=== PATIENT | male | born 1955 | race Caucasian/White ===

== ENCOUNTER 2019-04-03 13:20 | Outpatient (CLI) | payer OTHER ==
[~2019-04-03] VITALS: Ht 172 cm; Wt 89.4 kg
[2019-04-03 14:06] LABS: BASOPHILS % (AUTO) 1 % (0-10); EOSINOPHILS # (AUTO) 0.3 10^3/uL (0.0-0.3); EOSINOPHILS % (AUTO) 4 % (0-10); HEMATOCRIT 43 % (40-54); HEMOGLOBIN 14.1 G/DL (13.3-17.7); LYMPHOCYTES # (AUTO) 1.5 X 10^3 (1.0-4.0); LYMPHOCYTES % (AUTO) 17 % (12-44); MEAN CORPUSCULAR HEMOGLOBIN 28 PG (25-34); MEAN CORPUSCULAR HGB CONC 33 G/DL (32-36); MEAN CORPUSCULAR VOLUME 84 FL (80-99); MEAN PLATELET VOLUME 10.1 FL (7.4-10.4); MONOCYTES # (AUTO) 1.3 X 10^3 (0.0-1.0); MONOCYTES % (AUTO) 14 % (0-12); NEUTROPHILS # (AUTO) 5.7 X 10^3 (1.8-7.8); NEUTROPHILS % (AUTO) 65 % (42-75); PLATELET COUNT 323 10^3/uL (130-400); RED CELL DISTRIBUTION WIDTH 15.7 % (10.0-14.5); WHITE BLOOD COUNT 8.9 10^3/uL (4.3-11.0)
--- NOTE | 2019-04-03 14:16 | Diagnostic Imaging Report ---
EXAMINATION: Chest 2 view HISTORY: PRE-OP COMPARISON: None available. FINDINGS: The lung volumes are normal. No focal consolidation is seen. No large pleural effusion or pneumothorax is seen. The cardiomediastinal silhouette is normal in size and contour. No acute osseous abnormality is seen. IMPRESSION: 1. No acute pleuroparenchymal process. Dictated by: Dictated on workstation # [id number]
[2019-04-03 14:24] LABS: BUN/CREATININE RATIO 14; CALCIUM 9.2 MG/DL (8.5-10.1); CARBON DIOXIDE 24 MMOL/L (21-32); CHLORIDE 107 MMOL/L (98-107); CREATININE SERUM 1.09 MG/DL (0.60-1.30); GFR ESTIMATED > 60; GLUCOSE 132 MG/DL (70-105); POTASSIUM 4.8 MMOL/L (3.6-5.0); SODIUM 141 MMOL/L (135-145)
[2019-04-09] MEDS ORDERED: CRAN1CAP5 PO (09:13)
[2019-04-09] MEDS ORDERED: TEST200V21 IM (09:13)
[2019-04-09] MEDS ORDERED: SAW/1TAB2 PO (09:13)
[2019-04-09] MEDS ORDERED: ESOM20CA37 PO (09:13)
[2019-04-09] MEDS ORDERED: CITA20TA12 PO (09:13)
[2019-04-09] MEDS ORDERED: DIAZ2TAB2 PO (09:13)
[2019-04-09] MEDS ORDERED: AMLO10TA7 PO (09:13)
[2019-04-09] MEDS ORDERED: MULT-178 PO (09:13)
[2019-04-09] MEDS ORDERED: METF-397 PO (09:13)
[2019-04-09] MEDS ORDERED: TMSL.4C PO (09:13)
[2019-04-09] MEDS ORDERED: LISI-552 PO (09:13)
[2019-04-09] MEDS ORDERED: SIMV20TA26 PO (09:13)
[2019-04-09] MEDS ORDERED: SILO8CAP2 PO (09:13)
[2019-04-09] MEDS ORDERED: CYAN250010 PO (09:13)
[2019-04-09] MEDS ORDERED: ROPI1TAB PO (09:13)
[2019-04-09] MEDS ORDERED: OMG1KC PO (09:13)
[2019-04-09] MEDS ORDERED: LEVO175T5 PO (09:13)
[2019-04-09] MEDS ORDERED: ASPI-586 PO (09:13)
== END 2019-04-03 15:30 ==
LOC: PREOP 13:20 → EDUNIT# 14:00 → PREOP 15:30
PROVIDERS: ATTEND Otolaryngology Otolaryngology/Facial Plastic Surgery
DX: Z01.818 Encounter for other preprocedural examination (principal); Z01.812 Encounter for preprocedural laboratory examination; J34.2 Deviated nasal septum; J32.9 Chronic sinusitis, unspecified
CPT/HCPCS: 36415; 71046; 80048; 85025; 87081; 93005

== ENCOUNTER 2019-04-12 08:00 | Day surgery (SDC) | payer OTHER ==
[~2019-04-12] VITALS: Ht 163.2 cm; Wt 89.4 kg
[2019-04-12] VITALS (9 sets, daily range): BP systolic 125–142; BP diastolic 73–96
[~2019-04-12 08:00] MED LIST: AMLO10TA7 PO; ASPI-586 PO; CITA20TA12 PO; CRAN1CAP5 PO; CYAN250010 PO; DIAZ2TAB2 PO; ESOM20CA37 PO; LEVO175T5 PO; LISI-552 PO; METF-397 PO; MULT-178 PO; OMG1KC PO; ROPI1TAB PO; SAW/1TAB2 PO; SILO8CAP2 PO; SIMV20TA26 PO; TEST200V21 IM; TMSL.4C PO
[2019-04-12] MEDS ORDERED: SEVOFLURANE (ULTANE) 15 ML INHAL SOLN ONE ×3 (08:37→11:02)
[2019-04-12] MEDS ORDERED: ONDANSETRON 4 MG/2 ML (SDV) Z0FRAN ONE (08:37)
[2019-04-12] MEDS ORDERED: proPOfol 200 MG/20 ML (DIPRIVAN) VIAL IV ONE (08:37)
[2019-04-12] MEDS ORDERED: MIDAZOLAM 2 MG/2 ML (VERSED) VIAL ONE (08:37)
[2019-04-12] MEDS ORDERED: LIDOCAINE PF 2% 5 ML (XYLOCAINE) VIAL ONE (08:37)
[2019-04-12] MEDS ORDERED: fentaNYL INJECTION 100 MCG/2 ML AMP ONE (08:37)
[2019-04-12] MEDS ORDERED: AMPICILLIN/SULBACTAM INJECTION 1.5 GM in NS (IVPB) 100 ML IV ONE (09:00)
[2019-04-12] MEDS: LACTATED RINGERS 1,000 ML IV PRN ×2 (09:00→11:09)
[2019-04-12] MEDS ORDERED: CATHETER FLUSH 10 ML SYR IV PRN (09:00)
[2019-04-12] MEDS ORDERED: PHENYLEPHRINE 0.5% NASAL SPR (NEO-SYNEPHRINE) REG ONE (09:02)
[2019-04-12] MEDS ORDERED: COCAINE HCL 4% 2 ML SYR ONE (09:02)
[2019-04-12] MEDS ORDERED: BSS 15 ML ONE (09:02)
[2019-04-12] MEDS ORDERED: LIDOCAINE/EPI 1%-1:100,000 (XYLOCAINE) 20ML ONE (09:03)
--- NOTE | 2019-04-12 10:00 | Progress Note-Pre Operative ---
Pre-Operative Progress Note H&P Reviewed The H&P was reviewed, patient examined and no changes noted. Date Seen by Provider: Apr 12, 2019 Time Seen by Provider: 09:45 Date H&P Reviewed: Apr 12, 2019 Time H&P Reviewed: :45 Pre-Operative Diagnosis: Right Chronic Sinusitis, Deviated nasal Septum HAZEL DENSON MD Apr 12, 2019 10:00
[2019-04-12] MEDS ORDERED: PHENYLEPHRINE 100 MCG/ML 10 ML (ANESTHESIA) SYR ONE (10:44)
[2019-04-12] MEDS ORDERED: ROCURONIUM 10 MG/ML 5 ML SYRINGE IV ONE (11:02)
[2019-04-12] MEDS ORDERED: D5 1/2 NS W/KCL 20 MEQ/L 1,000 ML IV SCH (11:28)
--- NOTE | 2019-04-12 11:28 | Progress Note-Post Operative ---
Post-Operative Progess Note Surgeon (s)/Labor Operator (s) Surgeon HAZEL DENSON MD Labor Operator n/a Pre-Operative Diagnosis Right Chronic Sinusitis, Deviated nasal Septum Post-Operative Diagnosis same Post-Op Procedure Note Date of Procedure: Apr 12, 2019 Name of Procedure Performed: Nasal Septoplasty, Right ESs Description & Findings Description and Findings: n/a Anesthesia Type get Estimated Blood Loss minimal Packing none. Specimen(s) collected/removed Right Chronic Sinustis-aerobic anaerobic and fungal cultures sent to lab HAZEL DENSON MD Apr 12, 2019 11:28
[2019-04-12] MEDS ORDERED: PROMETHAZINE INJ 25 MG/ML (PHENERGAN) AMP IVP PRN (11:30)
[2019-04-12] MEDS ORDERED: ACETAMINOPHEN 325 MG TABLET PO PRN (11:30)
[2019-04-12] MEDS ORDERED: HYDROcodone/APAP 5 MG/325 MG (LORTAB) TAB PO PRN (11:30)
--- NOTE | 2019-04-12 11:38 | Anesthesia-General Post-Op ---
General Patient Condition Mental Status/LOC: Same as Preop Cardiovascular: Satisfactory Nausea/Vomiting: Absent Respiratory: Satisfactory Pain: Controlled Complications: Absent Post Op Complications Complications None Follow Up Care/Instructions Patient Instructions None needed. Anesthesia/Patient Condition Patient Condition Patient is doing well, no complaints, stable vital signs, no apparent adverse anesthesia problems. No complications reported per nursing. VIRAJ SILVERMAN CRNA Apr 12, 2019 11:38
[2019-04-12] MEDS ORDERED: fentaNYL INJECTION 100 MCG/2 ML AMP IVP ONE (11:45)
[2019-04-12] MEDS ORDERED: morphine INJ 10 MG/ML 1ML (SYR OR VIAL) IVP ONE (11:45)
[2019-04-12] MEDS ORDERED: ONDANSETRON 4 MG/2 ML (SDV) Z0FRAN IVP PRN (11:45)
[2019-04-12] MEDS ORDERED: HYDROmorphone 2 MG/ML VIAL (DILAUDID) IV ONE (11:45)
[2019-04-12] MEDS ORDERED: MEPERIDINE (DEMEROL) INJ 50 MG/ML IVP ONE (11:45)
[2019-04-12] MEDS ORDERED: AMOX-355 PO (13:07)
[2019-04-12] MEDS ORDERED: HYDR-4226 PO (13:17)
--- OUTSIDE RECORDS SUMMARY | 2019-04-16 05:05 | XMS REPORT | Clinical Summary ---
Author Author Admin, Song Levy Organization [facility] Address Unknown Phone Unavailable Allergies, Adverse Reactions, Alerts Allergy Name Reaction Description Start Date Severity Status Pr ovider No Known Allergies Jyothi Elder Conditions or Problems Problem Name Problem Code Onset Date Status Entry Date Provider Comment Standard Description Annotate URETHRITIS 597.80 Active Linh Quiroga MD Urethritis, unspecified Prostatitis Chronic Active Linh becker MD Chronic prostatitis Hypogonadism 257.2 Active Linh Quiroga MD Other testicular hypofunction BMI 27-27.9 Active Linh Quiroga MD Body Mass Index 27.0- 27.9, adult Overweight (BMI 25-29.9) Active Linh romo MD Overweight Medication List Medication Instructions Start Date Stop Date Generic Name NDC Status Provider Patient Instruction CIPRO 500 MG ORAL TABLET 1 tablet twice a day CIPROFLOXACIN HCL 72834637600 No Longer Active Lihn Quiroga MD Active TESTOSTERONE CYPIONATE 200 MG/ML INTRAMUSCULAR SOLUTIO N 1 injection every 10 days TESTOSTERONE CYPIONATE 08647650729 Active Linh Quiroga MD Active FISH OIL 1000 MG ORAL CAPSULE DELAYED RELEASE 1 pill b y mouth twice daily for cholesterol OMEGA-3 FATTY ACIDS 44949491547 Active Jyothi Eld er Active FEXOFENADINE HCL 180 MG ORAL TABLET 1 Daily FEXOFENADINE HCL 39799750637 Active Jyothi Elder Active MULTIVITAMINS ORAL CAPSULE 1 cap by mouth daily MULTIPLE VITAMIN 64203273922 Active Jyothi Elder Active KETOCONAZOLE 2 % EXTERNAL SHAMPOO Rub into scalp and l eave for 10 minutes and then rinse. May use 3-4 times a week. KETOCONAZOLE 00 860994582 Active Jyothi Elder Active CYCLOBENZAPRINE HCL 10 MG ORAL TABLET 1 tablet by mout h three times daily as needed for muscle spasm/pain CYCLOBENZAPRINE HCL 07250 879066 Active Jyothi Elder Active [facility] MAGNESIUM OXIDE 500 MG ORAL TABLET 1 tab by mouth daily MAGNESIUM OXIDE 95337871907 Active Jyothi Elder Active DIAZEPAM 2 MG ORAL TABLET 1 twice a day as needed for vertig o or stress DIAZEPAM 87597581966 Active Jyothi Elder Activ e CALCIUM + D 500-1000-40 MG-UNT-MCG ORAL TABLET CHEWABLE 1 ta b by mouth daily CALCIUM-VITAMIN D-VITAMIN K 64543376913 Active Jyothi Eld er Active ADULT ASPIRIN EC LOW STRENGTH 81 MG ORAL TABLET DELAYE D RELEASE 1 tab by mouth daily ASPIRIN 51662349656 Active Jyothi Elder Activ e CIALIS 20 MG ORAL TABLET 1 tab by mouth daily prn ED TADALAFIL 28059806012 Active Jyothi Elder Active FAMOTIDINE 20 MG ORAL TABLET 1 tab by mouth daily FAMOTIDINE 01427694477 Active Jyothi Elder Active METFORMIN HCL 500 MG ORAL TABLET 1 tablet by mouth twice daily 2017 METFORMIN HCL 30939002752 Active Jyothi Elder Active ALTACE 5 MG ORAL CAPSULE 1 tab by mouth daily JERO IPRIL 31276533175 Active Jyothi Elder Active SIMVASTATIN 20 MG ORAL TABLET 1 tab daily at bedtime SIMVASTATIN 46493564720 Active Jyothi Elder Active METRONIDAZOLE 500 MG ORAL TABLET 1 by mouth twice a day METRONIDAZOLE 70566198931 Active Jyothi Elder Active RAPAFLO 8 MG ORAL CAPSULE 1 tab by mouth daily SILODOSIN 55960297632 Active Jyothi Elder Active LEVOTHYROXINE SODIUM 175 MCG ORAL TABLET 1 pill by mouth annette ly for thyroid LEVOTHYROXINE SODIUM 55057817864 Active Jyothi Elder Active ACYCLOVIR 5 % EXTERNAL OINTMENT Apply to affected area daily prn 20 24/08/11 ACYCLOVIR 25541587196 Active Jyothi Elder Active CELEXA 40 MG ORAL TABLET 1 tab by mouth daily CITALOPRAM HYDROBROMIDE 14261921513 Active Jyothi Elder Active VALTREX 1 GM ORAL TABLET 1 tab by mouth daily V ALACYCLOVIR HCL 65268092302 Active Jyothi Elder Active DOXYCYCLINE HYCLATE 100 MG ORAL CAPSULE 1 cap by mouth twice daily DOXYCYCLINE HYCLATE 14845197258 Active Jyothi Elder Active CIPRO 500 MG ORAL TABLET 1 tablet twice a day CIPRO 500 MG ORAL TABLET 771388 CIPROFLOXACIN HCL Inactive Advance Directives Directive Description Start Date PERMISSION TO SHARE Vital Signs Date Name Value Unit Range Description blood pressure, diastolic, repeated by physician 75 BP castrejon blood pressure, diastolic 75 mm[Hg] BP castrejon blood pressure, systolic, repeated by physician 115 BP sys blood pressure, systolic 115 mm[Hg] BP sys height E&M 69 [in_us] Bdy height pulse rate E&M 80 /min Heart rate temperature E&M 98.0 [degF] Body temp erature weight E&M 184 [lb_av] Weight Measure d blood pressure, diastolic 78 mm[Hg] BP castrejon blood pressure, systolic 121 mm[Hg] BP sys height E&M 69 [in_us] Bdy height pulse rate E&M 78 /min Heart rate temperature E&M 98.2 [degF] Body temp erature weight E&M 171 [lb_av] Weight Measure d blood pressure, diastolic, repeated by physician 86 BP castrejon blood pressure, diastolic 86 mm[Hg] BP castrejon blood pressure, systolic, repeated by physician 120 BP sys blood pressure, systolic 120 mm[Hg] BP sys height E&M 69 [in_us] Bdy height pulse rate E&M 80 /min Heart rate temperature E&M 98.4 [degF] Body temp erature weight E&M 173 [lb_av] Weight Measure d Diagnostic Results Date Name Value Unit Range Description Office Visit: 1 month f/u urethritis - C hemistry RBC, urine, dipstick negative protein, total urine random negative mg/dL Office Visit: 1 month f/u urethritis - U rinalysis urinalysis, routine Clean Catch ketones, urine, by test strip small (15) bilirubin, urine negative glucose, urine, semiquantitative negative pH, urine, semiquantitative 7 specific gravity, urine 1.005 urine color yellow appearance, urine clear leukocyte esterase, urine, by dipstick negative nitrite, urine, semiquantitative negative urobilinogen, urine, semiquantitative (dipstick) negative protein, urine, semiquantitative (dipstick) negative Office Visit: 4 month follow up urethrit is - [facility] [place] sexually transmitted disease no risk noted Encounters Code Encounter Date Provider Facility CPT-51112 Level 3 Est. Patient 15:58:38 DIAMOND SETTER Linh sullivan MD [facility] CPT-14897 Level 3 Est. Patient 15:35:09 CDT Linh usllivan MD [facility] CPT-04362 Level 3 New Patient 14:11:30 CDT Linh nixon MD [facility]
--- OUTSIDE RECORDS SUMMARY | 2019-04-16 05:05 | XMS REPORT | Clinical Summary ---
Author Author Admin, Song Levy Organization [facility] Address Unknown Phone Unavailable Allergies, Adverse [...] Active Linh Quiroga MD Other testicular hypofunction Medication List Medication Instructions Start Date Stop Date Generic Name NDC Status Provider Patient Instruction FISH OIL 1000 MG ORAL CAPSULE DELAYED RELEASE 1 pill b y mouth twice daily for cholesterol OMEGA-3 FATTY ACIDS 54837311389 Active Jyothi Eld er Active FEXOFENADINE HCL 180 MG ORAL TABLET 1 Daily FEXOFENADINE HCL 31982036011 Active Jyothi Elder Active MULTIVITAMINS ORAL CAPSULE 1 cap by mouth daily MULTIPLE VITAMIN 06986794129 Active Jyothi Elder Active KETOCONAZOLE 2 % EXTERNAL SHAMPOO Rub into scalp and l eave for 10 minutes and then rinse. May use 3-4 times a week. KETOCONAZOLE 00 905904033 Active Jyothi Elder Active CYCLOBENZAPRINE HCL 10 MG ORAL TABLET 1 tablet by mout h three times daily as needed for muscle spasm/pain CYCLOBENZAPRINE HCL 97186 727545 Active Jyothi Elder Active [facility] MAGNESIUM OXIDE 500 MG ORAL TABLET 1 tab by mouth daily MAGNESIUM OXIDE 26208197163 Active Jyothi Elder Active TESTOSTERONE CYPIONATE 200 MG/ML INTRAMUSCULAR SOLUTION TESTOSTERONE CYPIONATE 01023910490 Active Jyothi Elder Activ e DIAZEPAM 2 MG ORAL TABLET 1 twice a day as needed for vertig o or stress DIAZEPAM 15214818222 Active Jyothi Elder Activ e CALCIUM + D 500-1000-40 MG-UNT-MCG ORAL TABLET CHEWABLE 1 ta b by mouth daily CALCIUM-VITAMIN D-VITAMIN K 44301334723 Active Jyothi Eld er Active ADULT ASPIRIN EC LOW STRENGTH 81 MG ORAL TABLET DELAYE D RELEASE 1 tab by mouth daily ASPIRIN 47443364076 Active Jyothi Elder Activ e CIALIS 20 MG ORAL TABLET 1 tab by mouth daily prn ED TADALAFIL 80164032431 Active Jyothi Elder Active FAMOTIDINE 20 MG ORAL TABLET 1 tab by mouth daily FAMOTIDINE 68833615942 Active Jyothi Elder Active METFORMIN HCL 500 MG ORAL TABLET 1 tablet by mouth twice daily 2017 METFORMIN HCL 24063898146 Active Jyothi Elder Active ALTACE 5 MG ORAL CAPSULE 1 tab by mouth daily JERO IPRIL 04278788337 Active Jyothi Elder Active SIMVASTATIN 20 MG ORAL TABLET 1 tab daily at bedtime SIMVASTATIN 63164311952 Active Jyothi Elder Active METRONIDAZOLE 500 MG ORAL TABLET 1 by mouth twice a day METRONIDAZOLE 01359566701 Active Jyothi Elder Active RAPAFLO 8 MG ORAL CAPSULE 1 tab by mouth daily SILODOSIN 35108316698 Active Jyothi Elder Active LEVOTHYROXINE SODIUM 175 MCG ORAL TABLET 1 pill by mouth annette ly for thyroid LEVOTHYROXINE SODIUM 62886487232 Active Jyothi Elder Active ACYCLOVIR 5 % EXTERNAL OINTMENT Apply to affected area daily prn 20 24/08/11 ACYCLOVIR 46412370409 Active Jyothi Elder Active CELEXA 40 MG ORAL TABLET 1 tab by mouth daily CITALOPRAM HYDROBROMIDE 70653110265 Active Jyothi Elder Active VALTREX 1 GM ORAL TABLET 1 tab by mouth daily V ALACYCLOVIR HCL 67454811106 Active Jyothi Elder Active DOXYCYCLINE HYCLATE 100 MG ORAL CAPSULE 1 cap by mouth twice daily DOXYCYCLINE HYCLATE 62547236515 Active Latanya Moore Active Advance Directives Directive Description Start Date PERMISSION TO SHARE Vital Signs Date Name Value Unit Range Description blood pressure, diastolic 78 mm[Hg] BP castrejon [...] (dipstick) negative protein, urine, semiquantitative (dipstick) negative Encounters Code Encounter Date Provider Facility CPT-46996 Level 3 Est. Patient 15:35:09 NIURKA sullivan MD [facility] CPT-73230 Level 3 New Patient 14:11:30 CDT Linh nixon MD [facility]
--- OUTSIDE RECORDS SUMMARY | 2019-04-16 05:05 | XMS REPORT | Clinical Summary ---
Author Author Admin, Song Levy Organization [facility] Address Unknown Phone Unavailable Allergies, Adverse Reactions, [...] Generic Name NDC Status Provider Patient Instruction TESTOSTERONE CYPIONATE 200 MG/ML INTRAMUSCULAR SOLUTIO N 1 injection every 10 days TESTOSTERONE CYPIONATE 52821862280 Active Linh Quiroga MD Active FISH OIL 1000 MG ORAL CAPSULE DELAYED RELEASE 1 pill b y mouth twice daily for cholesterol OMEGA-3 FATTY ACIDS 85751544572 Active Jyothi Eld er Active FEXOFENADINE HCL 180 MG ORAL TABLET 1 Daily FEXOFENADINE HCL 07001427457 Active Jyothi Elder Active MULTIVITAMINS ORAL CAPSULE 1 cap by mouth daily MULTIPLE VITAMIN 62026141479 Active Jyothi Elder Active KETOCONAZOLE 2 % EXTERNAL SHAMPOO Rub into scalp and l eave for 10 minutes and then rinse. May use 3-4 times a week. KETOCONAZOLE 00 292134152 Active Jyothi Elder Active CYCLOBENZAPRINE HCL 10 MG ORAL TABLET 1 tablet by mout h three times daily as needed for muscle spasm/pain CYCLOBENZAPRINE HCL 57517 720504 Active Jyothi Elder Active [facility] MAGNESIUM OXIDE 500 MG ORAL TABLET 1 tab by mouth daily MAGNESIUM OXIDE 85795132363 Active Jyothi Elder Active DIAZEPAM 2 MG ORAL TABLET 1 twice a day as needed for vertig o or stress DIAZEPAM 92113831383 Active Jyothi Elder Activ e CALCIUM + D 500-1000-40 MG-UNT-MCG ORAL TABLET CHEWABLE 1 ta b by mouth daily CALCIUM-VITAMIN D-VITAMIN K 54288165307 Active Jyothi Eld er Active ADULT ASPIRIN EC LOW STRENGTH 81 MG ORAL TABLET DELAYE D RELEASE 1 tab by mouth daily ASPIRIN 97937791018 Active Jyothi Elder Activ e CIALIS 20 MG ORAL TABLET 1 tab by mouth daily prn ED TADALAFIL 89522197587 Active Jyothi Elder Active FAMOTIDINE 20 MG ORAL TABLET 1 tab by mouth daily FAMOTIDINE 25912955903 Active Jyothi Elder Active METFORMIN HCL 500 MG ORAL TABLET 1 tablet by mouth twice daily 2017 METFORMIN HCL 23691257068 Active Jyothi Elder Active ALTACE 5 MG ORAL CAPSULE 1 tab by mouth daily JERO IPRIL 22587182882 Active Jyothi Elder Active SIMVASTATIN 20 MG ORAL TABLET 1 tab daily at bedtime SIMVASTATIN 45334798924 Active Jyothi Elder Active METRONIDAZOLE 500 MG ORAL TABLET 1 by mouth twice a day METRONIDAZOLE 47395499865 Active Jyothi Elder Active RAPAFLO 8 MG ORAL CAPSULE 1 tab by mouth daily SILODOSIN 04397899614 Active Jyothi Elder Active LEVOTHYROXINE SODIUM 175 MCG ORAL TABLET 1 pill by mouth annette ly for thyroid LEVOTHYROXINE SODIUM 71301054842 Active Jyothi Elder Active ACYCLOVIR 5 % EXTERNAL OINTMENT Apply to affected area daily prn 20 24/08/11 ACYCLOVIR 32586625802 Active Jyothi Elder Active CELEXA 40 MG ORAL TABLET 1 tab by mouth daily CITALOPRAM HYDROBROMIDE 21577039435 Active Jyothi Elder Active VALTREX 1 GM ORAL TABLET 1 tab by mouth daily V ALACYCLOVIR HCL 91790548692 Active Jyothi Elder Active DOXYCYCLINE HYCLATE 100 MG ORAL CAPSULE 1 cap by mouth twice daily DOXYCYCLINE HYCLATE 06941579935 Active Jyothi Elder Active Advance Directives Directive Description Start Date [...] negative Encounters Code Encounter Date Provider Facility CPT-38460 Level 3 Est. Patient 15:35:09 CDT Linh sullivan MD [facility] [place] CPT-24936 Level 3 New Patient 14:11:30 NIURKA nixon MD [facility]
--- OUTSIDE RECORDS SUMMARY | 2019-04-16 05:05 | XMS REPORT | Clinical Summary ---
Author Author Admin, Song Levy Organization [facility] Address Unknown Phone Unavailable Allergies, [...] 1 tablet twice a day CIPROFLOXACIN HCL 80116859834 Active Linh Quiroga MD Act warren TESTOSTERONE CYPIONATE 200 MG/ML INTRAMUSCULAR SOLUTIO N 1 injection every 10 days TESTOSTERONE CYPIONATE 24515831514 Active Linh Quiroga MD Active FISH OIL 1000 MG ORAL CAPSULE DELAYED RELEASE 1 pill b y mouth twice daily for cholesterol OMEGA-3 FATTY ACIDS 36992700993 Active Jyothi Eld er Active FEXOFENADINE HCL 180 MG ORAL TABLET 1 Daily FEXOFENADINE HCL 42166592488 Active Jyothi Elder Active MULTIVITAMINS ORAL CAPSULE 1 cap by mouth daily MULTIPLE VITAMIN 69910382926 Active Jyothi Elder Active KETOCONAZOLE 2 % EXTERNAL SHAMPOO Rub into scalp and l eave for 10 minutes and then rinse. May use 3-4 times a week. KETOCONAZOLE 00 085879158 Active Jyothi Elder Active CYCLOBENZAPRINE HCL 10 MG ORAL TABLET 1 tablet by mout h three times daily as needed for muscle spasm/pain CYCLOBENZAPRINE HCL 95706 127789 Active Jyothi Elder Active [facility] MAGNESIUM OXIDE 500 MG ORAL TABLET 1 tab by mouth daily MAGNESIUM OXIDE 52955431586 Active Jyothi Elder Active DIAZEPAM 2 MG ORAL TABLET 1 twice a day as needed for vertig o or stress DIAZEPAM 92605182485 Active Jyothi Elder Activ e CALCIUM + D 500-1000-40 MG-UNT-MCG ORAL TABLET CHEWABLE 1 ta b by mouth daily CALCIUM-VITAMIN D-VITAMIN K 32073077755 Active Jyothi Eld er Active ADULT ASPIRIN EC LOW STRENGTH 81 MG ORAL TABLET DELAYE D RELEASE 1 tab by mouth daily ASPIRIN 41212910937 Active Jyothi Elder Activ e CIALIS 20 MG ORAL TABLET 1 tab by mouth daily prn ED TADALAFIL 00642524983 Active Jyothi Elder Active FAMOTIDINE 20 MG ORAL TABLET 1 tab by mouth daily FAMOTIDINE 07839253329 Active Jyothi Elder Active METFORMIN HCL 500 MG ORAL TABLET 1 tablet by mouth twice daily 2017 METFORMIN HCL 06998001268 Active Jyothi Elder Active ALTACE 5 MG ORAL CAPSULE 1 tab by mouth daily JERO IPRIL 49516622534 Active Jyothi Elder Active SIMVASTATIN 20 MG ORAL TABLET 1 tab daily at bedtime SIMVASTATIN 76710344420 Active Jyothi Elder Active METRONIDAZOLE 500 MG ORAL TABLET 1 by mouth twice a day METRONIDAZOLE 28286884487 Active Jyothi Elder Active RAPAFLO 8 MG ORAL CAPSULE 1 tab by mouth daily SILODOSIN 73606838454 Active Jyothi Elder Active LEVOTHYROXINE SODIUM 175 MCG ORAL TABLET 1 pill by mouth annette ly for thyroid LEVOTHYROXINE SODIUM 64586602235 Active Jyothi Elder Active ACYCLOVIR 5 % EXTERNAL OINTMENT Apply to affected area daily prn 20 24/08/11 ACYCLOVIR 87854303078 Active Jyothi Elder Active CELEXA 40 MG ORAL TABLET 1 tab by mouth daily CITALOPRAM HYDROBROMIDE 52541390367 Active Jyothi Elder Active VALTREX 1 GM ORAL TABLET 1 tab by mouth daily V ALACYCLOVIR HCL 54450019156 Active Jyothi Elder Active DOXYCYCLINE HYCLATE 100 MG ORAL CAPSULE 1 cap by mouth twice daily DOXYCYCLINE HYCLATE 11972615421 Active Jyothi Elder Active Advance Directives Directive [...] negative Encounters Code Encounter Date Provider Facility CPT-07443 Level 3 Est. Patient 15:35:09 CDT Linh sullivan MD [facility] [place] CPT-76639 Level 3 New Patient 14:11:30 CDT Linh nixon MD [facility]
--- OUTSIDE RECORDS SUMMARY | 2019-04-16 05:05 | XMS REPORT | Clinical Summary ---
Author Author Admin, Song Levy Organization [facility] Address Unknown Phone Unavailable Allergies, [...] 1 tablet twice a day CIPROFLOXACIN HCL 18354567633 No Longer Active Linh Quiroga MD Active TESTOSTERONE CYPIONATE 200 MG/ML INTRAMUSCULAR SOLUTIO N 1 injection every 10 days TESTOSTERONE CYPIONATE 91401165477 Active Linh Quiroga MD Active FISH OIL 1000 MG ORAL CAPSULE DELAYED RELEASE 1 pill b y mouth twice daily for cholesterol OMEGA-3 FATTY ACIDS 14206686039 Active Jyothi Eld er Active FEXOFENADINE HCL 180 MG ORAL TABLET 1 Daily FEXOFENADINE HCL 22315877434 Active Jyothi Elder Active MULTIVITAMINS ORAL CAPSULE 1 cap by mouth daily MULTIPLE VITAMIN 44337258613 Active Jyothi Elder Active KETOCONAZOLE 2 % EXTERNAL SHAMPOO Rub into scalp and l eave for 10 minutes and then rinse. May use 3-4 times a week. KETOCONAZOLE 00 880099354 Active Jyothi Elder Active CYCLOBENZAPRINE HCL 10 MG ORAL TABLET 1 tablet by mout h three times daily as needed for muscle spasm/pain CYCLOBENZAPRINE HCL 23737 092652 Active Jyothi Elder Active [facility] MAGNESIUM OXIDE 500 MG ORAL TABLET 1 tab by mouth daily MAGNESIUM OXIDE 29292997098 Active Jyothi Elder Active DIAZEPAM 2 MG ORAL TABLET 1 twice a day as needed for vertig o or stress DIAZEPAM 56019480926 Active Jyothi Elder Activ e CALCIUM + D 500-1000-40 MG-UNT-MCG ORAL TABLET CHEWABLE 1 ta b by mouth daily CALCIUM-VITAMIN D-VITAMIN K 17816901631 Active Jyothi Eld er Active ADULT ASPIRIN EC LOW STRENGTH 81 MG ORAL TABLET DELAYE D RELEASE 1 tab by mouth daily ASPIRIN 04097314403 Active Jyothi Elder Activ e CIALIS 20 MG ORAL TABLET 1 tab by mouth daily prn ED TADALAFIL 17394093031 Active Jyothi Elder Active FAMOTIDINE 20 MG ORAL TABLET 1 tab by mouth daily FAMOTIDINE 69471226083 Active Jyothi Elder Active METFORMIN HCL 500 MG ORAL TABLET 1 tablet by mouth twice daily 2017 METFORMIN HCL 18981224511 Active Jyothi Elder Active ALTACE 5 MG ORAL CAPSULE 1 tab by mouth daily JERO IPRIL 89322727085 Active Jyothi Elder Active SIMVASTATIN 20 MG ORAL TABLET 1 tab daily at bedtime SIMVASTATIN 68545827303 Active Jyothi Elder Active METRONIDAZOLE 500 MG ORAL TABLET 1 by mouth twice a day METRONIDAZOLE 90647138811 Active Jyothi Elder Active RAPAFLO 8 MG ORAL CAPSULE 1 tab by mouth daily SILODOSIN 57544934691 Active Jyothi Elder Active LEVOTHYROXINE SODIUM 175 MCG ORAL TABLET 1 pill by mouth annette ly for thyroid LEVOTHYROXINE SODIUM 49122340232 Active Jyothi Elder Active ACYCLOVIR 5 % EXTERNAL OINTMENT Apply to affected area daily prn 20 24/08/11 ACYCLOVIR 26836111892 Active Jyothi Elder Active CELEXA 40 MG ORAL TABLET 1 tab by mouth daily CITALOPRAM HYDROBROMIDE 57421007494 Active Jyothi Elder Active VALTREX 1 GM ORAL TABLET 1 tab by mouth daily V ALACYCLOVIR HCL 27781867187 Active Jyothi Elder Active DOXYCYCLINE HYCLATE 100 MG ORAL CAPSULE 1 cap by mouth twice daily DOXYCYCLINE HYCLATE 32242851609 Active Jyothi Elder Active CIPRO 500 MG ORAL TABLET 1 tablet twice a day CIPRO 500 MG ORAL TABLET 582590 CIPROFLOXACIN HCL Inactive Advance Directives Directive Description [...] 4 month follow up urethrit is - [facility] sexually transmitted disease no risk noted Encounters Code Encounter Date Provider Facility CPT-09333 Level 3 Est. Patient 15:58:38 AVP Linh sullivan MD [facility] CPT-62535 Level 3 Est. Patient 15:35:09 CDT Linh sullivan MD [facility] CPT-49781 Level 3 New Patient 14:11:30 CDT Linh nixon MD [facility]
--- OUTSIDE RECORDS SUMMARY | 2019-04-16 05:05 | XMS REPORT | Clinical Summary ---
Author Author Admin, Song Levy Organization [facility] Address Unknown Phone Unavailable Allergies, Adverse Reactions, [...] (BMI 25-29.9) Active Linh romo MD Overweight Health maintenance V70.0 Active Linh melara MD Routine general medical examination at a health care facility Medication List Medication Instructions Start Date Stop Date Generic Name NDC Status Provider Patient Instruction RAPAFLO 8 MG ORAL CAPSULE 1 tab by mouth daily SILODOSIN 51390276720 Active Jyothi Elder Active FLOMAX 0.4 MG ORAL CAPSULE 1 capsule by mouth every ev ening for prostate symptoms TAMSULOSIN HCL 96473911291 Active Jyothi Elder Active CIPRO 500 MG ORAL TABLET 1 tablet twice a day CIPROFLOXACIN HCL 97561175048 No Longer Active Linh Quiroga MD Active TESTOSTERONE CYPIONATE 200 MG/ML INTRAMUSCULAR SOLUTIO N 1 injection every 10 days TESTOSTERONE CYPIONATE 23225126395 Active Jyothi Elde r Active FISH OIL 1000 MG ORAL CAPSULE DELAYED RELEASE 1 pill b y mouth twice daily for cholesterol OMEGA-3 FATTY ACIDS 02984283354 Active Jyothi Eld er Active FEXOFENADINE HCL 180 MG ORAL TABLET 1 Daily FEXOFENADINE HCL 16027894553 Active Jyothi Elder Active MULTIVITAMINS ORAL CAPSULE 1 cap by mouth daily MULTIPLE VITAMIN 49420897225 Active Jyothi Elder Active KETOCONAZOLE 2 % EXTERNAL SHAMPOO Rub into scalp and l eave for 10 minutes and then rinse. May use 3-4 times a week. KETOCONAZOLE 00 158379286 Active Jyothi Elder Active CYCLOBENZAPRINE HCL 10 MG ORAL TABLET 1 tablet by mout h three times daily as needed for muscle spasm/pain CYCLOBENZAPRINE HCL 85722 079634 Active Jyothi Elder Active [facility] MAGNESIUM OXIDE 500 MG ORAL TABLET 1 tab by mouth daily MAGNESIUM OXIDE 80898131578 Active Jyothi Elder Active DIAZEPAM 2 MG ORAL TABLET 1 twice a day as needed for vertig o or stress DIAZEPAM 61072235070 Active Jyothi Elder Activ e CALCIUM + D 500-1000-40 MG-UNT-MCG ORAL TABLET CHEWABLE 1 ta b by mouth daily CALCIUM-VITAMIN D-VITAMIN K 86566909275 Active Jyothi Eld er Active ADULT ASPIRIN EC LOW STRENGTH 81 MG ORAL TABLET DELAYE D RELEASE 1 tab by mouth daily ASPIRIN 54243558254 Active Jyothi Elder Activ e CIALIS 20 MG ORAL TABLET 1 tab by mouth daily prn ED TADALAFIL 79261796540 Active Jyothi Elder Active FAMOTIDINE 20 MG ORAL TABLET 1 tab by mouth daily FAMOTIDINE 42848105481 Active Jyothi Elder Active METFORMIN HCL 500 MG ORAL TABLET 1 tablet by mouth twice daily 2017 METFORMIN HCL 24799897111 Active Jyothi Elder Active ALTACE 5 MG ORAL CAPSULE 1 tab by mouth daily JERO IPRIL 45202877644 Active Jyothi Elder Active SIMVASTATIN 20 MG ORAL TABLET 1 tab daily at bedtime SIMVASTATIN 70785053113 Active Jyothi Elder Active METRONIDAZOLE 500 MG ORAL TABLET 1 by mouth twice a day METRONIDAZOLE 50734507393 Active Jyothi Elder Active LEVOTHYROXINE SODIUM 175 MCG ORAL TABLET 1 pill by mouth annette ly for thyroid LEVOTHYROXINE SODIUM 93527754269 Active Jyothi Elder Active ACYCLOVIR 5 % EXTERNAL OINTMENT Apply to affected area daily prn 20 24/08/11 ACYCLOVIR 03801398481 Active Jyothi Elder Active CELEXA 40 MG ORAL TABLET 1 tab by mouth daily CITALOPRAM HYDROBROMIDE 92446199507 Active Jyothi Elder Active VALTREX 1 GM ORAL TABLET 1 tab by mouth daily V ALACYCLOVIR HCL 91650695466 Active Jyothi Elder Active DOXYCYCLINE HYCLATE 100 MG ORAL CAPSULE 1 cap by mouth twice daily DOXYCYCLINE HYCLATE 33851972544 Active Jyothi Elder Active CIPRO 500 MG ORAL TABLET 1 tablet twice a day CIPRO 500 MG ORAL TABLET 596220 CIPROFLOXACIN HCL Inactive Advance Directives Directive Description Start Date PERMISSION TO SHARE Encounters Code Encounter Date Provider Facility CPT-90283 Level 3 Est. 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 Patient 15:35:09 CDT Linh sullivan MD [facility] CPT-91774 Level 3 New Patient 14:11:30 CDT Linh nixon MD [facility]
--- OUTSIDE RECORDS SUMMARY | 2019-04-16 05:05 | XMS REPORT | Clinical Summary ---
Author Author Admin, Song Levy Organization [facility] Address Unknown Phone Unavailable Allergies, Adverse [...] 1 tablet twice a day CIPROFLOXACIN HCL 08972929336 No Longer Active Linh Quiroga MD Active TESTOSTERONE CYPIONATE 200 MG/ML INTRAMUSCULAR SOLUTIO N 1 injection every 10 days TESTOSTERONE CYPIONATE 81410957184 Active Linh Quiroga MD Active FISH OIL 1000 MG ORAL CAPSULE DELAYED RELEASE 1 pill b y mouth twice daily for cholesterol OMEGA-3 FATTY ACIDS 11824212144 Active Jyothi Eld er Active FEXOFENADINE HCL 180 MG ORAL TABLET 1 Daily FEXOFENADINE HCL 73707904370 Active Jyothi Elder Active MULTIVITAMINS ORAL CAPSULE 1 cap by mouth daily MULTIPLE VITAMIN 99736241478 Active Jyothi Elder Active KETOCONAZOLE 2 % EXTERNAL SHAMPOO Rub into scalp and l eave for 10 minutes and then rinse. May use 3-4 times a week. KETOCONAZOLE 00 613539158 Active Jyothi Elder Active CYCLOBENZAPRINE HCL 10 MG ORAL TABLET 1 tablet by mout h three times daily as needed for muscle spasm/pain CYCLOBENZAPRINE HCL 80070 649445 Active Jyothi Elder Active [facility] MAGNESIUM OXIDE 500 MG ORAL TABLET 1 tab by mouth daily MAGNESIUM OXIDE 63034493148 Active Jyothi Elder Active DIAZEPAM 2 MG ORAL TABLET 1 twice a day as needed for vertig o or stress DIAZEPAM 73239183050 Active Jyothi Elder Activ e CALCIUM + D 500-1000-40 MG-UNT-MCG ORAL TABLET CHEWABLE 1 ta b by mouth daily CALCIUM-VITAMIN D-VITAMIN K 21470178475 Active Jyothi Eld er Active ADULT ASPIRIN EC LOW STRENGTH 81 MG ORAL TABLET DELAYE D RELEASE 1 tab by mouth daily ASPIRIN 92058193796 Active Jyothi Elder Activ e CIALIS 20 MG ORAL TABLET 1 tab by mouth daily prn ED TADALAFIL 58898948730 Active Jyothi Elder Active FAMOTIDINE 20 MG ORAL TABLET 1 tab by mouth daily FAMOTIDINE 73389652682 Active Jyothi Elder Active METFORMIN HCL 500 MG ORAL TABLET 1 tablet by mouth twice daily 2017 METFORMIN HCL 36416217842 Active Jyothi Elder Active ALTACE 5 MG ORAL CAPSULE 1 tab by mouth daily JERO IPRIL 17297728240 Active Jyothi Elder Active SIMVASTATIN 20 MG ORAL TABLET 1 tab daily at bedtime SIMVASTATIN 98430818928 Active Jyothi Elder Active METRONIDAZOLE 500 MG ORAL TABLET 1 by mouth twice a day METRONIDAZOLE 74122236752 Active Jyothi Elder Active RAPAFLO 8 MG ORAL CAPSULE 1 tab by mouth daily SILODOSIN 94569500247 Active Jyothi Elder Active LEVOTHYROXINE SODIUM 175 MCG ORAL TABLET 1 pill by mouth annette ly for thyroid LEVOTHYROXINE SODIUM 83614536546 Active Jyothi Elder Active ACYCLOVIR 5 % EXTERNAL OINTMENT Apply to affected area daily prn 20 24/08/11 ACYCLOVIR 55129414537 Active Jyothi Elder Active CELEXA 40 MG ORAL TABLET 1 tab by mouth daily CITALOPRAM HYDROBROMIDE 37367201567 Active Jyothi Elder Active VALTREX 1 GM ORAL TABLET 1 tab by mouth daily V ALACYCLOVIR HCL 60168541511 Active Jyothi Elder Active DOXYCYCLINE HYCLATE 100 MG ORAL CAPSULE 1 cap by mouth twice daily DOXYCYCLINE HYCLATE 36642928267 Active Jyothi Elder Active CIPRO 500 MG ORAL TABLET 1 tablet twice a day CIPRO 500 MG ORAL TABLET 196126 CIPROFLOXACIN HCL Inactive Advance Directives Directive Description [...] 4 month follow up urethrit is - PM sexually transmitted disease no risk noted Encounters Code Encounter Date Provider Facility CPT-50830 Level 3 Est. 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 Patient 15:35:09 CDT Linh sullivan MD [facility] CPT-54847 Level 3 New Patient 14:11:30 CDT Linh nixon MD [facility]
--- OUTSIDE RECORDS SUMMARY | 2019-04-16 05:05 | XMS REPORT | Clinical Summary ---
Author Author Admin, Song Levy Organization [facility] Address Unknown Phone Unavailable Allergies, Adverse [...] 1 tablet twice a day CIPROFLOXACIN HCL 43632120387 No Longer Active Linh Quiroga MD Active TESTOSTERONE CYPIONATE 200 MG/ML INTRAMUSCULAR SOLUTIO N 1 injection every 10 days TESTOSTERONE CYPIONATE 74076021094 Active Linh Quiroga MD Active FISH OIL 1000 MG ORAL CAPSULE DELAYED RELEASE 1 pill b y mouth twice daily for cholesterol OMEGA-3 FATTY ACIDS 96039831972 Active Jyothi Eld er Active FEXOFENADINE HCL 180 MG ORAL TABLET 1 Daily FEXOFENADINE HCL 38918444826 Active Jyothi Elder Active MULTIVITAMINS ORAL CAPSULE 1 cap by mouth daily MULTIPLE VITAMIN 18367485641 Active Jyothi Elder Active KETOCONAZOLE 2 % EXTERNAL SHAMPOO Rub into scalp and l eave for 10 minutes and then rinse. May use 3-4 times a week. KETOCONAZOLE 00 549046884 Active Jyothi Elder Active CYCLOBENZAPRINE HCL 10 MG ORAL TABLET 1 tablet by mout h three times daily as needed for muscle spasm/pain CYCLOBENZAPRINE HCL 66665 620317 Active Jyothi Elder Active [facility] MAGNESIUM OXIDE 500 MG ORAL TABLET 1 tab by mouth daily MAGNESIUM OXIDE 82928770090 Active Jyothi Elder Active DIAZEPAM 2 MG ORAL TABLET 1 twice a day as needed for vertig o or stress DIAZEPAM 02276678970 Active Jyothi Elder Activ e CALCIUM + D 500-1000-40 MG-UNT-MCG ORAL TABLET CHEWABLE 1 ta b by mouth daily CALCIUM-VITAMIN D-VITAMIN K 71722267516 Active Jyothi Eld er Active ADULT ASPIRIN EC LOW STRENGTH 81 MG ORAL TABLET DELAYE D RELEASE 1 tab by mouth daily ASPIRIN 35626727552 Active Jyothi Elder Activ e CIALIS 20 MG ORAL TABLET 1 tab by mouth daily prn ED TADALAFIL 06693517170 Active Jyothi Elder Active FAMOTIDINE 20 MG ORAL TABLET 1 tab by mouth daily FAMOTIDINE 83565410137 Active Jyothi Elder Active METFORMIN HCL 500 MG ORAL TABLET 1 tablet by mouth twice daily 2017 METFORMIN HCL 88582528233 Active Jyothi Elder Active ALTACE 5 MG ORAL CAPSULE 1 tab by mouth daily JERO IPRIL 97231190680 Active Jyothi Elder Active SIMVASTATIN 20 MG ORAL TABLET 1 tab daily at bedtime SIMVASTATIN 10438647711 Active Jyothi Elder Active METRONIDAZOLE 500 MG ORAL TABLET 1 by mouth twice a day METRONIDAZOLE 80250567200 Active Jyohti Elder Active RAPAFLO 8 MG ORAL CAPSULE 1 tab by mouth daily SILODOSIN 90293922209 Active Jyothi Elder Active LEVOTHYROXINE SODIUM 175 MCG ORAL TABLET 1 pill by mouth annette ly for thyroid LEVOTHYROXINE SODIUM 60131189806 Active Jyothi Elder Active ACYCLOVIR 5 % EXTERNAL OINTMENT Apply to affected area daily prn 20 24/08/11 ACYCLOVIR 40502347856 Active Jyothi Elder Active CELEXA 40 MG ORAL TABLET 1 tab by mouth daily CITALOPRAM HYDROBROMIDE 78158171931 Active Jyothi Elder Active VALTREX 1 GM ORAL TABLET 1 tab by mouth daily V ALACYCLOVIR HCL 38968313341 Active Jyothi Elder Active DOXYCYCLINE HYCLATE 100 MG ORAL CAPSULE 1 cap by mouth twice daily DOXYCYCLINE HYCLATE 48037304585 Active Jyothi Elder Active CIPRO 500 MG ORAL TABLET 1 tablet twice a day CIPRO 500 MG ORAL TABLET 617240 CIPROFLOXACIN HCL Inactive Advance Directives Directive Description [...] 4 month follow up urethrit is - [facility] sexually transmitted disease no risk noted Encounters Code Encounter Date Provider Facility CPT-03088 Level 3 Est. 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 Patient 15:35:09 CDT Linh sullivan MD [facility] CPT-04831 Level 3 New Patient 14:11:30 CDT Linh nixon MD [facility]
--- OUTSIDE RECORDS SUMMARY | 2019-04-16 05:05 | XMS REPORT | Clinical Summary ---
Author Author Admin, Song Levy Organization [facility] Address Unknown Phone Unavailable Allergies, [...] twice daily for cholesterol OMEGA-3 FATTY ACIDS 52382242245 Active Jyothi Eld er Active FEXOFENADINE HCL 180 MG ORAL TABLET 1 Daily FEXOFENADINE HCL 17009827251 Active Jyothi Elder Active MULTIVITAMINS ORAL CAPSULE 1 cap by mouth daily MULTIPLE VITAMIN 52133556324 Active Jyothi Elder Active KETOCONAZOLE 2 % EXTERNAL SHAMPOO Rub into scalp and l eave for 10 minutes and then rinse. May use 3-4 times a week. KETOCONAZOLE 00 604104826 Active Jyothi Elder Active CYCLOBENZAPRINE HCL 10 MG ORAL TABLET 1 tablet by mout h three times daily as needed for muscle spasm/pain CYCLOBENZAPRINE HCL 68836 644717 Active Jyothi Elder Active [facility] MAGNESIUM OXIDE 500 MG ORAL TABLET 1 tab by mouth daily MAGNESIUM OXIDE 70448151169 Active Jyothi Elder Active TESTOSTERONE CYPIONATE 200 MG/ML INTRAMUSCULAR SOLUTION TESTOSTERONE CYPIONATE 72070191309 Active Jyothi Elder Activ e DIAZEPAM 2 MG ORAL TABLET 1 twice a day as needed for vertig o or stress DIAZEPAM 53565023761 Active Jyothi Elder Activ e CALCIUM + D 500-1000-40 MG-UNT-MCG ORAL TABLET CHEWABLE 1 ta b by mouth daily CALCIUM-VITAMIN D-VITAMIN K 84940733085 Active Jyothi Eld er Active ADULT ASPIRIN EC LOW STRENGTH 81 MG ORAL TABLET DELAYE D RELEASE 1 tab by mouth daily ASPIRIN 99099840923 Active Jyothi Elder Activ e CIALIS 20 MG ORAL TABLET 1 tab by mouth daily prn ED TADALAFIL 72274054950 Active Jyothi Elder Active FAMOTIDINE 20 MG ORAL TABLET 1 tab by mouth daily FAMOTIDINE 20328320566 Active Jyothi Elder Active METFORMIN HCL 500 MG ORAL TABLET 1 tablet by mouth twice daily 2017 METFORMIN HCL 66663161983 Active Jyothi Elder Active ALTACE 5 MG ORAL CAPSULE 1 tab by mouth daily JERO IPRIL 92500174641 Active Jyothi Elder Active SIMVASTATIN 20 MG ORAL TABLET 1 tab daily at bedtime SIMVASTATIN 85462576946 Active Jyothi Elder Active METRONIDAZOLE 500 MG ORAL TABLET 1 by mouth twice a day METRONIDAZOLE 99270764358 Active Jyothi Elder Active RAPAFLO 8 MG ORAL CAPSULE 1 tab by mouth daily SILODOSIN 99448211071 Active Jyothi Elder Active LEVOTHYROXINE SODIUM 175 MCG ORAL TABLET 1 pill by mouth annette ly for thyroid LEVOTHYROXINE SODIUM 80863006311 Active Jyothi Elder Active ACYCLOVIR 5 % EXTERNAL OINTMENT Apply to affected area daily prn 20 24/08/11 ACYCLOVIR 09041721167 Active Jyothi Elder Active CELEXA 40 MG ORAL TABLET 1 tab by mouth daily CITALOPRAM HYDROBROMIDE 54305537484 Active Jyothi Elder Active VALTREX 1 GM ORAL TABLET 1 tab by mouth daily V ALACYCLOVIR HCL 27477953316 Active Jyothi Elder Active DOXYCYCLINE HYCLATE 100 MG ORAL CAPSULE 1 cap by mouth twice daily DOXYCYCLINE HYCLATE 77329737760 Active Latanya Moore Active Advance Directives Directive [...] negative Encounters Code Encounter Date Provider Facility CPT-15700 Level 3 Est. Patient 15:35:09 NIURKA sullivan MD [facility] CPT-85969 Level 3 New Patient 14:11:30 CDT Linh nixon MD [facility]
--- OUTSIDE RECORDS SUMMARY | 2019-04-16 05:06 | XMS REPORT | Clinical Summary ---
Author Author Song Good Organization [facility] Address Unknown Phone Unavailable Allergies, Adverse Reactions, Alerts Allergy Name Reaction Description Start Date Severity Status Pr ovider No Known Allergies Jyothi Elder Conditions or Problems Problem Name Problem Code Onset Date Status Entry Date Provider Comment Standard Description Annotate Problems Unknown Active Medication List Medication Instructions Start Date Stop Date Generic Name NDC Status Provider Patient Instruction FISH OIL 1000 MG ORAL CAPSULE DELAYED RELEASE 1 pill b y mouth twice daily for cholesterol OMEGA-3 FATTY ACIDS 92908408493 Active Jyothi Eld er Active FEXOFENADINE HCL 180 MG ORAL TABLET 1 Daily FEXOFENADINE HCL 93887349841 Active Jyothi Elder Active MULTIVITAMINS ORAL CAPSULE 1 cap by mouth daily MULTIPLE VITAMIN 49357556732 Active Jyothi Elder Active KETOCONAZOLE 2 % EXTERNAL SHAMPOO Rub into scalp and l eave for 10 minutes and then rinse. May use 3-4 times a week. KETOCONAZOLE 00 096244642 Active Jyothi Elder Active CYCLOBENZAPRINE HCL 10 MG ORAL TABLET 1 tablet by mout h three times daily as needed for muscle spasm/pain CYCLOBENZAPRINE HCL 84754 244483 Active Jyothi Elder Active [facility] MAGNESIUM OXIDE 500 MG ORAL TABLET 1 tab by mouth daily MAGNESIUM OXIDE 47388436054 Active Jyothi Elder Active TESTOSTERONE CYPIONATE 200 MG/ML INTRAMUSCULAR SOLUTION TESTOSTERONE CYPIONATE 93941751214 Active Jyothi Elder Activ e DIAZEPAM 2 MG ORAL TABLET 1 twice a day as needed for vertig o or stress DIAZEPAM 80066193850 Active Jyothi Elder Activ e CALCIUM + D 500-1000-40 MG-UNT-MCG ORAL TABLET CHEWABLE 1 ta b by mouth daily CALCIUM-VITAMIN D-VITAMIN K 33052885408 Active Jyothi Eld er Active ADULT ASPIRIN EC LOW STRENGTH 81 MG ORAL TABLET DELAYE D RELEASE 1 tab by mouth daily ASPIRIN 45338139194 Active Jyothi Elder Activ e CIALIS 20 MG ORAL TABLET 1 tab by mouth daily prn ED TADALAFIL 31011579854 Active Jyothi Elder Active FAMOTIDINE 20 MG ORAL TABLET 1 tab by mouth daily FAMOTIDINE 59249347177 Active Jyothi Elder Active METFORMIN HCL 500 MG ORAL TABLET 1 tablet by mouth twice daily 2017 METFORMIN HCL 45163836963 Active Jyothi Elder Active ALTACE 5 MG ORAL CAPSULE 1 tab by mouth daily JERO IPRIL 77773219147 Active Jyothi Elder Active SIMVASTATIN 20 MG ORAL TABLET 1 tab daily at bedtime SIMVASTATIN 89464715702 Active Jyothi Elder Active METRONIDAZOLE 500 MG ORAL TABLET 1 by mouth twice a day METRONIDAZOLE 91513230591 Active Jyothi Elder Active RAPAFLO 8 MG ORAL CAPSULE 1 tab by mouth daily SILODOSIN 29291492876 Active Jyothi Elder Active LEVOTHYROXINE SODIUM 175 MCG ORAL TABLET 1 pill by mouth annette ly for thyroid LEVOTHYROXINE SODIUM 77475753453 Active Jyothi Elder Active ACYCLOVIR 5 % EXTERNAL OINTMENT Apply to affected area daily prn 20 24/08/11 ACYCLOVIR 78400171334 Active Jyothi Elder Active CELEXA 40 MG ORAL TABLET 1 tab by mouth daily CITALOPRAM HYDROBROMIDE 19354836611 Active Jyothi Elder Active VALTREX 1 GM ORAL TABLET 1 tab by mouth daily V ALACYCLOVIR HCL 79400446179 Active Jyothi Elder Active DOXYCYCLINE HYCLATE 100 MG ORAL CAPSULE 1 cap by mouth twice daily DOXYCYCLINE HYCLATE 47945294195 Active Jyothi Elder Active
--- OUTSIDE RECORDS SUMMARY | 2019-04-16 05:06 | XMS REPORT | Clinical Summary ---
Author Author Admin, Song Levy Organization [facility] Address Unknown Phone Unavailable Allergies, [...] twice daily for cholesterol OMEGA-3 FATTY ACIDS 91884493104 Active Jyothi Eld er Active FEXOFENADINE HCL 180 MG ORAL TABLET 1 Daily FEXOFENADINE HCL 17885036143 Active Jyothi Elder Active MULTIVITAMINS ORAL CAPSULE 1 cap by mouth daily MULTIPLE VITAMIN 36604013008 Active Jyothi Elder Active KETOCONAZOLE 2 % EXTERNAL SHAMPOO Rub into scalp and l eave for 10 minutes and then rinse. May use 3-4 times a week. KETOCONAZOLE 00 075933078 Active Jyothi Elder Active CYCLOBENZAPRINE HCL 10 MG ORAL TABLET 1 tablet by mout h three times daily as needed for muscle spasm/pain CYCLOBENZAPRINE HCL 05252 181839 Active Jyothi Elder Active [facility] MAGNESIUM OXIDE 500 MG ORAL TABLET 1 tab by mouth daily MAGNESIUM OXIDE 51768056558 Active Jyothi Elder Active TESTOSTERONE CYPIONATE 200 MG/ML INTRAMUSCULAR SOLUTION TESTOSTERONE CYPIONATE 03870707424 Active Jyothi Elder Activ e DIAZEPAM 2 MG ORAL TABLET 1 twice a day as needed for vertig o or stress DIAZEPAM 51977736026 Active Jyothi Elder Activ e CALCIUM + D 500-1000-40 MG-UNT-MCG ORAL TABLET CHEWABLE 1 ta b by mouth daily CALCIUM-VITAMIN D-VITAMIN K 52155162697 Active Jyothi Eld er Active ADULT ASPIRIN EC LOW STRENGTH 81 MG ORAL TABLET DELAYE D RELEASE 1 tab by mouth daily ASPIRIN 09351446184 Active Jyothi Elder Activ e CIALIS 20 MG ORAL TABLET 1 tab by mouth daily prn ED TADALAFIL 53733237714 Active Jyothi Elder Active FAMOTIDINE 20 MG ORAL TABLET 1 tab by mouth daily FAMOTIDINE 60197514850 Active Jyothi Elder Active METFORMIN HCL 500 MG ORAL TABLET 1 tablet by mouth twice daily 2017 METFORMIN HCL 95532440385 Active Jyothi Elder Active ALTACE 5 MG ORAL CAPSULE 1 tab by mouth daily JERO IPRIL 34153630708 Active Jyothi Elder Active SIMVASTATIN 20 MG ORAL TABLET 1 tab daily at bedtime SIMVASTATIN 71468737558 Active Jyothi Elder Active METRONIDAZOLE 500 MG ORAL TABLET 1 by mouth twice a day METRONIDAZOLE 76693998469 Active Jyothi Elder Active RAPAFLO 8 MG ORAL CAPSULE 1 tab by mouth daily SILODOSIN 24286818368 Active Jyothi Elder Active LEVOTHYROXINE SODIUM 175 MCG ORAL TABLET 1 pill by mouth annette ly for thyroid LEVOTHYROXINE SODIUM 10579829520 Active Jyothi Elder Active ACYCLOVIR 5 % EXTERNAL OINTMENT Apply to affected area daily prn 20 24/08/11 ACYCLOVIR 96207276297 Active Jyothi Elder Active CELEXA 40 MG ORAL TABLET 1 tab by mouth daily CITALOPRAM HYDROBROMIDE 32550267212 Active Jyothi Elder Active VALTREX 1 GM ORAL TABLET 1 tab by mouth daily V ALACYCLOVIR HCL 22110100374 Active Jyothi Elder Active DOXYCYCLINE HYCLATE 100 MG ORAL CAPSULE 1 cap by mouth twice daily DOXYCYCLINE HYCLATE 66129063234 Active J Elfego Wetzel ctwarren Advance Directives Directive Description Start Date PERMISSION [...] negative Encounters Code Encounter Date Provider Facility CPT-75477 Level 3 Est. Patient 15:35:09 NIURKA sullivan MD [facility] CPT-51982 Level 3 New Patient 14:11:30 CDT Linh nixon MD [facility]
--- OUTSIDE RECORDS SUMMARY | 2019-04-16 05:06 | XMS REPORT | Clinical Summary ---
Author Author Latisha, Song Levy Organization [facility] Address Unknown Phone Unavailable Allergies, Adverse Reactions, Alerts Allergy Name Reaction Description Start Date Severity Status Pr ovider No Known Allergies Jyothi Elder Conditions or Problems Problem Name Problem Code Onset Date Status Entry Date Provider Comment Standard Description Annotate URETHRITIS 597.80 Active Linh Quiroga MD Urethritis, unspecified Prostatitis Chronic Active Linh becker MD Chronic prostatitis Medication List Medication Instructions Start Date Stop Date Generic Name NDC Status Provider Patient Instruction FISH OIL 1000 MG ORAL CAPSULE DELAYED RELEASE 1 pill b y mouth twice daily for cholesterol OMEGA-3 FATTY ACIDS 70920037214 Active Jyothi Eld er Active FEXOFENADINE HCL 180 MG ORAL TABLET 1 Daily FEXOFENADINE HCL 78175766213 Active Jyothi Elder Active MULTIVITAMINS ORAL CAPSULE 1 cap by mouth daily MULTIPLE VITAMIN 51437065193 Active Jyothi Elder Active KETOCONAZOLE 2 % EXTERNAL SHAMPOO Rub into scalp and l eave for 10 minutes and then rinse. May use 3-4 times a week. KETOCONAZOLE 00 389640918 Active Jyothi Elder Active CYCLOBENZAPRINE HCL 10 MG ORAL TABLET 1 tablet by mout h three times daily as needed for muscle spasm/pain CYCLOBENZAPRINE HCL 33294 074917 Active Jyothi Elder Active [facility] MAGNESIUM OXIDE 500 MG ORAL TABLET 1 tab by mouth daily MAGNESIUM OXIDE 49953241728 Active Jyothi Elder Active TESTOSTERONE CYPIONATE 200 MG/ML INTRAMUSCULAR SOLUTION TESTOSTERONE CYPIONATE 70454436975 Active Jyothi Elder Activ e DIAZEPAM 2 MG ORAL TABLET 1 twice a day as needed for vertig o or stress DIAZEPAM 29418597806 Active Jyothi Elder Activ e CALCIUM + D 500-1000-40 MG-UNT-MCG ORAL TABLET CHEWABLE 1 ta b by mouth daily CALCIUM-VITAMIN D-VITAMIN K 48483744341 Active Jyothi Eld er Active ADULT ASPIRIN EC LOW STRENGTH 81 MG ORAL TABLET DELAYE D RELEASE 1 tab by mouth daily ASPIRIN 78482077680 Active Jyothi Elder Activ e CIALIS 20 MG ORAL TABLET 1 tab by mouth daily prn ED TADALAFIL 44769330834 Active Jyothi Elder Active FAMOTIDINE 20 MG ORAL TABLET 1 tab by mouth daily FAMOTIDINE 87495367725 Active Jyothi Elder Active METFORMIN HCL 500 MG ORAL TABLET 1 tablet by mouth twice daily 2017 METFORMIN HCL 34826393410 Active Jyothi Elder Active ALTACE 5 MG ORAL CAPSULE 1 tab by mouth daily JERO IPRIL 02397376679 Active Jyothi Elder Active SIMVASTATIN 20 MG ORAL TABLET 1 tab daily at bedtime SIMVASTATIN 66276799100 Active Jyothi Elder Active METRONIDAZOLE 500 MG ORAL TABLET 1 by mouth twice a day METRONIDAZOLE 54784380542 Active Jyothi Elder Active RAPAFLO 8 MG ORAL CAPSULE 1 tab by mouth daily SILODOSIN 01444520385 Active Jyothi Elder Active LEVOTHYROXINE SODIUM 175 MCG ORAL TABLET 1 pill by mouth annette ly for thyroid LEVOTHYROXINE SODIUM 54297015589 Active Jyothi Elder Active ACYCLOVIR 5 % EXTERNAL OINTMENT Apply to affected area daily prn 20 24/08/11 ACYCLOVIR 99187931896 Active Jyothi Elder Active CELEXA 40 MG ORAL TABLET 1 tab by mouth daily CITALOPRAM HYDROBROMIDE 84541751960 Active Jyothi Elder Active VALTREX 1 GM ORAL TABLET 1 tab by mouth daily V ALACYCLOVIR HCL 04176923587 Active Jyothi Elder Active DOXYCYCLINE HYCLATE 100 MG ORAL CAPSULE 1 cap by mouth twice daily DOXYCYCLINE HYCLATE 78096512879 Active Jyothi Elder Active Vital Signs Date Name Value Unit Range Description blood pressure, diastolic, repeated by physician 86 BP castrejon blood pressure, diastolic 86 mm[Hg] BP castrejon blood pressure, systolic, repeated by physician 120 BP sys blood pressure, systolic 120 mm[Hg] BP sys height E&M 69 [in_us] Bdy height pulse rate E&M 80 /min Heart rate temperature E&M 98.4 [degF] Body temp erature weight E&M 173 [lb_av] Weight Measure d Encounters Code Encounter Date Provider Facility CPT-88787 Level 3 New Patient 14:11:30 CDT Linh nixon MD [facility]
--- OUTSIDE RECORDS SUMMARY | 2019-04-16 05:06 | XMS REPORT | Clinical Summary ---
Author Author Latisha, Song Levy Organization [facility] Address Unknown Phone Unavailable Allergies, Adverse Reactions, Alerts Allergy Name Reaction Description Start Date Severity Status Pr ovider No Known Allergies Jyothi Elder Conditions or Problems Problem Name Problem Code Onset Date Status Entry Date Provider Comment Standard Description Annotate URETHRITIS 597.80 Active Linh Quirgoa MD Urethritis, unspecified Prostatitis Chronic Active Linh becker MD Chronic prostatitis Medication List Medication Instructions Start Date Stop Date Generic Name NDC Status Provider Patient Instruction FISH OIL 1000 MG ORAL CAPSULE DELAYED RELEASE 1 pill b y mouth twice daily for cholesterol OMEGA-3 FATTY ACIDS 65230984393 Active Jyothi Eld er Active FEXOFENADINE HCL 180 MG ORAL TABLET 1 Daily FEXOFENADINE HCL 33836966452 Active Jyothi Elder Active MULTIVITAMINS ORAL CAPSULE 1 cap by mouth daily MULTIPLE VITAMIN 46445099427 Active Jyothi Elder Active KETOCONAZOLE 2 % EXTERNAL SHAMPOO Rub into scalp and l eave for 10 minutes and then rinse. May use 3-4 times a week. KETOCONAZOLE 00 284828850 Active Jyothi Elder Active CYCLOBENZAPRINE HCL 10 MG ORAL TABLET 1 tablet by mout h three times daily as needed for muscle spasm/pain CYCLOBENZAPRINE HCL 22137 809891 Active Jyothi Elder Active [facility] MAGNESIUM OXIDE 500 MG ORAL TABLET 1 tab by mouth daily MAGNESIUM OXIDE 60610192061 Active Jyothi Elder Active TESTOSTERONE CYPIONATE 200 MG/ML INTRAMUSCULAR SOLUTION TESTOSTERONE CYPIONATE 34395591257 Active Jyothi Elder Activ e DIAZEPAM 2 MG ORAL TABLET 1 twice a day as needed for vertig o or stress DIAZEPAM 64276719573 Active Jyothi Elder Activ e CALCIUM + D 500-1000-40 MG-UNT-MCG ORAL TABLET CHEWABLE 1 ta b by mouth daily CALCIUM-VITAMIN D-VITAMIN K 22914641233 Active Jyothi Eld er Active ADULT ASPIRIN EC LOW STRENGTH 81 MG ORAL TABLET DELAYE D RELEASE 1 tab by mouth daily ASPIRIN 07237068118 Active Jyothi Elder Activ e CIALIS 20 MG ORAL TABLET 1 tab by mouth daily prn ED TADALAFIL 29225725338 Active Jyothi Elder Active FAMOTIDINE 20 MG ORAL TABLET 1 tab by mouth daily FAMOTIDINE 92411201122 Active Jyothi Elder Active METFORMIN HCL 500 MG ORAL TABLET 1 tablet by mouth twice daily 2017 METFORMIN HCL 98165589402 Active Jyothi Elder Active ALTACE 5 MG ORAL CAPSULE 1 tab by mouth daily JERO IPRIL 37752584400 Active Jyothi Elder Active SIMVASTATIN 20 MG ORAL TABLET 1 tab daily at bedtime SIMVASTATIN 52478245236 Active Jyothi Elder Active METRONIDAZOLE 500 MG ORAL TABLET 1 by mouth twice a day METRONIDAZOLE 29541322389 Active Jyothi Elder Active RAPAFLO 8 MG ORAL CAPSULE 1 tab by mouth daily SILODOSIN 61734655471 Active Jyothi Elder Active LEVOTHYROXINE SODIUM 175 MCG ORAL TABLET 1 pill by mouth annette ly for thyroid LEVOTHYROXINE SODIUM 38333298444 Active Jyothi Elder Active ACYCLOVIR 5 % EXTERNAL OINTMENT Apply to affected area daily prn 20 24/08/11 ACYCLOVIR 70889618524 Active Jyothi Elder Active CELEXA 40 MG ORAL TABLET 1 tab by mouth daily CITALOPRAM HYDROBROMIDE 41879471013 Active Jyothi Elder Active VALTREX 1 GM ORAL TABLET 1 tab by mouth daily V ALACYCLOVIR HCL 15603065256 Active Jyothi Elder Active DOXYCYCLINE HYCLATE 100 MG ORAL CAPSULE 1 cap by mouth twice daily DOXYCYCLINE HYCLATE 35636808156 Active Jyothi Elder Active Advance Directives Directive [...] d Encounters Code Encounter Date Provider Facility CPT-05696 Level 3 New Patient 14:11:30 CDT Linh nixon MD [facility]
--- OUTSIDE RECORDS SUMMARY | 2019-04-16 05:06 | XMS REPORT | Clinical Summary ---
Author Author Latisha, Song Levy Organization [facility] Address Unknown Phone Unavailable Allergies, [...] twice daily for cholesterol OMEGA-3 FATTY ACIDS 04577688775 Active Jyothi Eld er Active FEXOFENADINE HCL 180 MG ORAL TABLET 1 Daily FEXOFENADINE HCL 36650671591 Active Jyothi Elder Active MULTIVITAMINS ORAL CAPSULE 1 cap by mouth daily MULTIPLE VITAMIN 99844541956 Active Jyothi Elder Active KETOCONAZOLE 2 % EXTERNAL SHAMPOO Rub into scalp and l eave for 10 minutes and then rinse. May use 3-4 times a week. KETOCONAZOLE 00 407638279 Active Jyothi Elder Active CYCLOBENZAPRINE HCL 10 MG ORAL TABLET 1 tablet by mout h three times daily as needed for muscle spasm/pain CYCLOBENZAPRINE HCL 14521 496215 Active Jyothi Elder Active [facility] MAGNESIUM OXIDE 500 MG ORAL TABLET 1 tab by mouth daily MAGNESIUM OXIDE 39434557162 Active Jyothi Elder Active TESTOSTERONE CYPIONATE 200 MG/ML INTRAMUSCULAR SOLUTION TESTOSTERONE CYPIONATE 14253092098 Active Jyothi Elder Activ e DIAZEPAM 2 MG ORAL TABLET 1 twice a day as needed for vertig o or stress DIAZEPAM 19679813752 Active Jyothi Elder Activ e CALCIUM + D 500-1000-40 MG-UNT-MCG ORAL TABLET CHEWABLE 1 ta b by mouth daily CALCIUM-VITAMIN D-VITAMIN K 51798771855 Active Jyothi Eld er Active ADULT ASPIRIN EC LOW STRENGTH 81 MG ORAL TABLET DELAYE D RELEASE 1 tab by mouth daily ASPIRIN 28794387617 Active Jyothi Elder Activ e CIALIS 20 MG ORAL TABLET 1 tab by mouth daily prn ED TADALAFIL 00087113691 Active Jyothi Elder Active FAMOTIDINE 20 MG ORAL TABLET 1 tab by mouth daily FAMOTIDINE 71093053190 Active Jyothi Elder Active METFORMIN HCL 500 MG ORAL TABLET 1 tablet by mouth twice daily 2017 METFORMIN HCL 23803653863 Active Jyothi Elder Active ALTACE 5 MG ORAL CAPSULE 1 tab by mouth daily JERO IPRIL 41178361432 Active Jyothi Elder Active SIMVASTATIN 20 MG ORAL TABLET 1 tab daily at bedtime SIMVASTATIN 24846329528 Active Jyothi Elder Active METRONIDAZOLE 500 MG ORAL TABLET 1 by mouth twice a day METRONIDAZOLE 79680045681 Active Jyothi Elder Active RAPAFLO 8 MG ORAL CAPSULE 1 tab by mouth daily SILODOSIN 69953247355 Active Jyothi Elder Active LEVOTHYROXINE SODIUM 175 MCG ORAL TABLET 1 pill by mouth annette ly for thyroid LEVOTHYROXINE SODIUM 86146344226 Active Jyothi Elder Active ACYCLOVIR 5 % EXTERNAL OINTMENT Apply to affected area daily prn 20 24/08/11 ACYCLOVIR 53394109052 Active Jyothi Elder Active CELEXA 40 MG ORAL TABLET 1 tab by mouth daily CITALOPRAM HYDROBROMIDE 74829418602 Active Jyothi Elder Active VALTREX 1 GM ORAL TABLET 1 tab by mouth daily V ALACYCLOVIR HCL 20111021840 Active Jyothi Elder Active DOXYCYCLINE HYCLATE 100 MG ORAL CAPSULE 1 cap by mouth twice daily DOXYCYCLINE HYCLATE 07001905792 Active Jyothi Elder Active Vital Signs Date [...] d Encounters Code Encounter Date Provider Facility CPT-32356 Level 3 New Patient 14:11:30 CDT Linh nixon MD [facility]
--- OUTSIDE RECORDS SUMMARY | 2019-04-16 05:06 | XMS REPORT | Clinical Summary ---
Author Author Latisha, Song Levy Organization [facility] Address Unknown Phone Unavailable Allergies, [...] twice daily for cholesterol OMEGA-3 FATTY ACIDS 36165639173 Active Jyothi Eld er Active FEXOFENADINE HCL 180 MG ORAL TABLET 1 Daily FEXOFENADINE HCL 79824250991 Active Jyothi Elder Active MULTIVITAMINS ORAL CAPSULE 1 cap by mouth daily MULTIPLE VITAMIN 03715760626 Active Jyothi Elder Active KETOCONAZOLE 2 % EXTERNAL SHAMPOO Rub into scalp and l eave for 10 minutes and then rinse. May use 3-4 times a week. KETOCONAZOLE 00 027429095 Active Jyothi Elder Active CYCLOBENZAPRINE HCL 10 MG ORAL TABLET 1 tablet by mout h three times daily as needed for muscle spasm/pain CYCLOBENZAPRINE HCL 18810 039894 Active Jyothi Elder Active [facility] MAGNESIUM OXIDE 500 MG ORAL TABLET 1 tab by mouth daily MAGNESIUM OXIDE 90373507606 Active Jyothi Elder Active TESTOSTERONE CYPIONATE 200 MG/ML INTRAMUSCULAR SOLUTION TESTOSTERONE CYPIONATE 38271451940 Active Jyothi Elder Activ e DIAZEPAM 2 MG ORAL TABLET 1 twice a day as needed for vertig o or stress DIAZEPAM 70268617663 Active Jyothi Elder Activ e CALCIUM + D 500-1000-40 MG-UNT-MCG ORAL TABLET CHEWABLE 1 ta b by mouth daily CALCIUM-VITAMIN D-VITAMIN K 19968237158 Active Jyothi Eld er Active ADULT ASPIRIN EC LOW STRENGTH 81 MG ORAL TABLET DELAYE D RELEASE 1 tab by mouth daily ASPIRIN 51372916864 Active Jyothi Elder Activ e CIALIS 20 MG ORAL TABLET 1 tab by mouth daily prn ED TADALAFIL 93063807600 Active Jyothi Elder Active FAMOTIDINE 20 MG ORAL TABLET 1 tab by mouth daily FAMOTIDINE 93163936829 Active Jyothi Elder Active METFORMIN HCL 500 MG ORAL TABLET 1 tablet by mouth twice daily 2017 METFORMIN HCL 07348081857 Active Jyothi Elder Active ALTACE 5 MG ORAL CAPSULE 1 tab by mouth daily JERO IPRIL 32312349188 Active Jyothi Elder Active SIMVASTATIN 20 MG ORAL TABLET 1 tab daily at bedtime SIMVASTATIN 50858025182 Active Jyothi Elder Active METRONIDAZOLE 500 MG ORAL TABLET 1 by mouth twice a day METRONIDAZOLE 96525664502 Active Jyothi Elder Active RAPAFLO 8 MG ORAL CAPSULE 1 tab by mouth daily SILODOSIN 76712086004 Active Jyothi Elder Active LEVOTHYROXINE SODIUM 175 MCG ORAL TABLET 1 pill by mouth annette ly for thyroid LEVOTHYROXINE SODIUM 01781595497 Active Jyothi Elder Active ACYCLOVIR 5 % EXTERNAL OINTMENT Apply to affected area daily prn 20 24/08/11 ACYCLOVIR 29471576628 Active Jyothi Elder Active CELEXA 40 MG ORAL TABLET 1 tab by mouth daily CITALOPRAM HYDROBROMIDE 93769779712 Active Jyothi Elder Active VALTREX 1 GM ORAL TABLET 1 tab by mouth daily V ALACYCLOVIR HCL 16283736910 Active Jyothi Elder Active DOXYCYCLINE HYCLATE 100 MG ORAL CAPSULE 1 cap by mouth twice daily DOXYCYCLINE HYCLATE 20946350574 Active Jyothi Elder Active Advance Directives Directive [...] d Encounters Code Encounter Date Provider Facility CPT-49519 Level 3 New Patient 14:11:30 CDT Linh nixon MD [facility]
--- OUTSIDE RECORDS SUMMARY | 2019-04-16 05:06 | XMS REPORT | Clinical Summary ---
Author Author Latisha, Song Levy Organization [facility] Address Unknown Phone Unavailable Allergies, Adverse Reactions, [...] twice daily for cholesterol OMEGA-3 FATTY ACIDS 95306680520 Active Jyothi Eld er Active FEXOFENADINE HCL 180 MG ORAL TABLET 1 Daily FEXOFENADINE HCL 67187212424 Active Jyothi Elder Active MULTIVITAMINS ORAL CAPSULE 1 cap by mouth daily MULTIPLE VITAMIN 22096481490 Active Jyothi Elder Active KETOCONAZOLE 2 % EXTERNAL SHAMPOO Rub into scalp and l eave for 10 minutes and then rinse. May use 3-4 times a week. KETOCONAZOLE 00 525929580 Active Jyothi Elder Active CYCLOBENZAPRINE HCL 10 MG ORAL TABLET 1 tablet by mout h three times daily as needed for muscle spasm/pain CYCLOBENZAPRINE HCL 24851 482481 Active Jyothi Elder Active [facility] MAGNESIUM OXIDE 500 MG ORAL TABLET 1 tab by mouth daily MAGNESIUM OXIDE 25759911532 Active Jyothi Elder Active TESTOSTERONE CYPIONATE 200 MG/ML INTRAMUSCULAR SOLUTION TESTOSTERONE CYPIONATE 81107138812 Active Jyothi Elder Activ e DIAZEPAM 2 MG ORAL TABLET 1 twice a day as needed for vertig o or stress DIAZEPAM 53028352911 Active Jyothi Elder Activ e CALCIUM + D 500-1000-40 MG-UNT-MCG ORAL TABLET CHEWABLE 1 ta b by mouth daily CALCIUM-VITAMIN D-VITAMIN K 18089497303 Active Jyothi Eld er Active ADULT ASPIRIN EC LOW STRENGTH 81 MG ORAL TABLET DELAYE D RELEASE 1 tab by mouth daily ASPIRIN 38302070040 Active Jyothi Elder Activ e CIALIS 20 MG ORAL TABLET 1 tab by mouth daily prn ED TADALAFIL 37655299625 Active Jyothi Elder Active FAMOTIDINE 20 MG ORAL TABLET 1 tab by mouth daily FAMOTIDINE 54923661530 Active Jyothi Elder Active METFORMIN HCL 500 MG ORAL TABLET 1 tablet by mouth twice daily 2017 METFORMIN HCL 48797676328 Active Jyothi Elder Active ALTACE 5 MG ORAL CAPSULE 1 tab by mouth daily JERO IPRIL 64135236377 Active Jyothi Elder Active SIMVASTATIN 20 MG ORAL TABLET 1 tab daily at bedtime SIMVASTATIN 17128430409 Active Jyothi Elder Active METRONIDAZOLE 500 MG ORAL TABLET 1 by mouth twice a day METRONIDAZOLE 44922211224 Active Jyothi Elder Active RAPAFLO 8 MG ORAL CAPSULE 1 tab by mouth daily SILODOSIN 45916421813 Active Jyothi Elder Active LEVOTHYROXINE SODIUM 175 MCG ORAL TABLET 1 pill by mouth annette ly for thyroid LEVOTHYROXINE SODIUM 82725129762 Active Jyothi Elder Active ACYCLOVIR 5 % EXTERNAL OINTMENT Apply to affected area daily prn 20 24/08/11 ACYCLOVIR 47019122192 Active Jyothi Elder Active CELEXA 40 MG ORAL TABLET 1 tab by mouth daily CITALOPRAM HYDROBROMIDE 94817310186 Active Jyothi Elder Active VALTREX 1 GM ORAL TABLET 1 tab by mouth daily V ALACYCLOVIR HCL 36181717543 Active Jyothi Elder Active DOXYCYCLINE HYCLATE 100 MG ORAL CAPSULE 1 cap by mouth twice daily DOXYCYCLINE HYCLATE 97063713655 Active Jyothi Elder Active Advance Directives Directive [...] d Encounters Code Encounter Date Provider Facility CPT-80108 Level 3 New Patient 14:11:30 CDT Linh nixon MD [facility]
== END 2019-04-12 14:05 | disposition home or self-care (01) ==
LOC: SDC 08:00
PROVIDERS: ATTEND Otolaryngology Otolaryngology/Facial Plastic Surgery
DX: J34.2 Deviated nasal septum (principal); J32.2 Chronic ethmoidal sinusitis; J32.0 Chronic maxillary sinusitis; J34.89 Other specified disorders of nose and nasal sinuses; J30.9 Allergic rhinitis, unspecified; I10 Essential (primary) hypertension; E03.9 Hypothyroidism, unspecified; E66.9 Obesity, unspecified; E78.5 Hyperlipidemia, unspecified; E11.9 Type 2 diabetes mellitus without complications; K21.9 Gastro-esophageal reflux disease without esophagitis; F41.9 Anxiety disorder, unspecified; F32.9 Major depressive disorder, single episode, unspecified; Z79.82 Long term (current) use of aspirin; Z79.84 Long term (current) use of oral hypoglycemic drugs; Z79.899 Other long term (current) drug therapy; Z68.30 Body mass index [BMI] 30.0-30.9, adult
CPT/HCPCS: 82962; 87070; 87075; 87076; 87101; 87185; 87205; 88305

== ENCOUNTER 2020-08-11 17:51 | Emergency (ER) | payer BC, OTHER ==
[~2020-08-11] VITALS: Ht 172.7 cm; Wt 90.0 kg
[~2020-08-11 17:51] MED LIST changes: +AMLO-251 PO; -AMLO10TA7 PO; +AMOX-355 PO; +HYDR-4226 PO; -LISI-552 PO; +LISI20TA26 PO
--- NOTE | 2020-08-11 18:12 | ED Integumentary General ---
General Stated Complaint: FEVER Source: patient History of Present Illness Date Seen by Provider: Aug 11, 2020 Time Seen by Provider: 18:18 Initial Comments 65-year-old male presents with 2 days of loose stools/diarrhea and today having some blood-tinged stool. No associated abdominal pain, nausea or vomiting. Decreased appetite today and states that a fever of over 100. An episode of feeling lightheaded and sweaty and nearly passing out prior to calling EMS this afternoon. Allergies and Home Medications Allergies Coded Allergies: No Known Drug Allergies (Unverified , 04/03/19) Home Medications Amlodipine Besylate 10 Mg Tablet, 10 MG PO DAILY, (Reported) Last Action: Reviewed Citalopram Hydrobromide 20 Mg Tablet, 20 MG PO DAILY, (Reported) Last Action: Reviewed Cranberry Extract/Vit C 1 Each Capsule, 1 EACH PO DAILY, (Reported) Last Action: Last Taken Edited Cyanocobalamin (Vitamin B-12) 2,500 Mcg Tablet, 1,000 MCG PO DAILY, (Reported) Last Action: Last Taken Edited Diazepam 2 Mg Tablet, 2-4 MG PO HS, (Reported) Last Action: Last Taken Edited Esomeprazole Magnesium 20 Mg Capsule.dr, 20 MG PO DAILY, (Reported) Last Action: Reviewed Hydrocodone/Acetaminophen 1 Each Tablet, 1-2 TAB PO Q4-6HR Prescribed by: RICHY RAMÍREZ on 04/12/19 1317 Last Action: Last Taken Edited Levocetirizine Dihydrochloride 5 Mg Tablet, 5 MG PO DAILY, (Reported) Last Action: New Order Levothyroxine Sodium 175 Mcg Tablet, 175 MCG PO DAILY, (Reported) Last Action: Reviewed Lisinopril 20 Mg Tablet, 20 MG PO BID, (Reported) Last Action: Reviewed Metformin HCl 500 Mg Tablet, 500 MG PO TID, (Reported) Last Action: Reviewed Multivitamin 1 Each Tablet, 1 EACH PO DAILY, (Reported) Last Action: Last Taken Edited [place] 3 Polyunsat Fatty Acids 1,000 Mg Cap, 2,000 MG PO DAILY, (Reported) Last Action: Reviewed Ropinirole HCl 1 Mg Tablet, 1 MG PO HS, (Reported) Last Action: Reviewed Saw/Vit E/Sod Ginny/Lyc/Beta/Pyg 1 Each Tablet, 1 EACH PO DAILY, (Reported) Last Action: Last Taken Edited Silodosin 8 Mg Capsule, 8 MG PO Q48H, (Reported) Last Action: Last Taken Edited Simvastatin 20 Mg Tablet, 20 MG PO HS, (Reported) Last Action: Reviewed Tamsulosin HCl 0.4 Mg Cap, 0.4 MG PO Q48H, (Reported) Last Action: Last Taken Edited Testosterone Cypionate 200 Mg/1 Ml Vial, 200 MG IM Q 10 DAYS, (Reported) Last Action: Reviewed Patient Home Medication List Home Medication List Reviewed: Yes Review of Systems Review of Systems Constitutional: diaphoresis, dizziness, fever, malaise, weakness EENTM: no symptoms reported Respiratory: No cough, No short of breath Cardiovascular: No chest pain, No edema, No palpitations, No syncope (but near syncope) Gastrointestinal: No abdominal pain, No constipation; diarrhea, loss of appetite; No melena, No nausea, No vomiting; other ("pink" blood in stool) Genitourinary: no symptoms reported Musculoskeletal: No back pain, No joint pain Skin: No change in color, No rash Past S[place]ymyu-[place]ot[place] Hx Seasonal Allergies Seasonal Allergies: Yes Past Medical History Surgeries: No (COLONOSCOPY, CATARACTS) Respiratory: No Currently Using CPAP: No Currently Using BIPAP: No Cardiac: Yes High Cholesterol, Hypertension, Irregular Heartbeat Neurological: No Genitourinary: No Gastrointestinal: Yes Gastroesophageal Reflux Musculoskeletal: No Endocrine: Yes Hypothyroidsim, Diabetes, Non-Insulin dep HEENT: Yes (READING GLASSES) Loss of Vision: Denies Hearing Impairment: Denies Cancer: No Psychosocial: Yes Anxiety, Depression Integumentary: No Blood Disorders: No Adverse Reaction/Blood Tranf: No (N/A) Physical Exam Vital Signs Vital Signs - First Documented 08/11/20 17:53 Temp 38.1 Pulse 92 Resp 20 B/P (MAP) 129/63 (85) Pulse Ox 98 O2 Delivery Room Air Capillary Refill : General Appearance: WD/WN, no apparent distress HEENT: PERRL/EOMI, normal ENT inspection Neck: non-tender, supple Cardiovascular: regular rate, rhythm, no edema, no JVD Respiratory: chest non-tender, lungs clear, normal breath sounds Gastrointestinal: normal bowel sounds, non tender, soft Back: normal inspection, no CVA tenderness, no vertebral tenderness Extremities: normal range of motion, non-tender, no pedal edema Neurologic/Psychiatric: no motor/sensory deficits, alert, normal mood/affect, oriented x 3 Skin: normal color, warm/dry Progress/Results/Core Measures Results/Orders Lab Results Laboratory Tests Test 08/11/20 17:59 08/11/20 18:03 08/11/20 18:35 Range/Units White Blood Count 11.3 H 4.3-11.0 10^3/uL Red Blood Count 4.89 4.35-5.85 10^6/uL Hemoglobin 13.3 13.3-17.7 G/DL Hematocrit 41 40-54 % Mean Corpuscular Volume 84 80-99 FL Mean Corpuscular Hemoglobin 27 25-34 PG Mean Corpuscular Hemoglobin Concent 33 32-36 G/DL Red Cell Distribution Width 15.5 H 10.0-14.5 % Platelet Count 254 130-400 10^3/uL Mean Platelet Volume 10.1 7.4-10.4 FL Immature Granulocyte % (Auto) 0 % Neutrophils (%) (Auto) 82 H 42-75 % Lymphocytes (%) (Auto) 9 L 12-44 % Monocytes (%) (Auto) 9 0-12 % Eosinophils (%) (Auto) 0 0-10 % Basophils (%) (Auto) 0 0-10 % Neutrophils # (Auto) 9.1 H 1.8-7.8 X 10^3 Lymphocytes # (Auto) 1.0 1.0-4.0 X 10^3 Monocytes # (Auto) 1.1 H 0.0-1.0 X 10^3 Eosinophils # (Auto) 0.0 0.0-0.3 10^3/uL Basophils # (Auto) 0.0 0.0-0.1 10^3/uL Immature Granulocyte # (Auto) 0.1 0.0-0.1 10^3/uL Sodium Level 138 135-145 MMOL/L Potassium Level 4.0 3.6-5.0 MMOL/L Chloride Level 103 98-107 MMOL/L Carbon Dioxide Level 26 21-32 MMOL/L Anion Gap 9 5-14 MMOL/L Blood Urea Nitrogen 13 7-18 MG/DL Creatinine 1.03 0.60-1.30 MG/DL Estimat Glomerular Filtration Rate > 60 BUN/Creatinine Ratio 13 Glucose Level 128 H 70-105 MG/DL Calcium Level 8.4 L 8.5-10.1 MG/DL Corrected Calcium 8.4 L 8.5-10.1 MG/DL Total Bilirubin 0.3 0.1-1.0 MG/DL Aspartate Amino Transf (AST/SGOT) 15 5-34 U/L Alanine Aminotransferase (ALT/SGPT) 13 0-55 U/L Alkaline Phosphatase 63 40-136 U/L Total Protein 6.3 L 6.4-8.2 GM/DL Albumin 4.0 3.2-4.5 GM/DL Glucometer 124 H 70-110 MG/DL Lactic Acid Level 2.14 *H 0.50-2.00 MMOL/L My Orders Orders - LEVI CHAMBERLAIN DO Cbc With Automated Diff (08/11/20 18:26) Comprehensive Metabolic Panel (08/11/20 18:26) Lactic Acid Analyzer (08/11/20 18:26) Ns Iv 1000 Ml (Sodium Chloride 0.9%) (08/11/20 18:30) Famotidine Injection (Pepcid Injection) (08/11/20 18:30) Famotidine Injection (Pepcid Injection) (08/11/20 18:38) Medications Given in ED Current Medications Medications Dose Ordered Sig/Jana Route Start Time Stop Time Status Last Admin Dose Admin Famotidine 20 mg ONCE ONCE IVP 08/11/20 18:30 08/11/20 18:31 DC 08/11/20 18:40 20 MG Vital Signs/I&O 08/11/20 17:53 Temp 38.1 Pulse 92 Resp 20 B/P (MAP) 129/63 (85) Pulse Ox 98 O2 Delivery Room Air Departure Impression Primary Impression: Diarrhea Qualified Codes: R19.7 - Diarrhea, unspecified Disposition: 01 HOME, SELF-CARE Condition: Improved Departure-Patient Inst. Decision time for Depature: 19:07 Referrals: [facility] (PCP) Primary Care Physician TAE JANG APRN (Family) Primary Care Physician Patient Instructions: Diarrhea, Adult ED Add. Discharge Instructions: Take the Ciprofloxacin in 2 to 3 days if not improving or worse. You may take Imodium if needed. See your PCP in a week if not improving or worse. Avoid dairy products or sweetened beverages Scripts Ciprofloxacin HCl (Ciprofloxacin HCl) 500 Mg Tablet 500 MG PO BID, #2 TAB Prov: LEVI CHAMBERLAIN DO 08/11/20 LEVI CHAMBERLAIN DO Aug 11, 2020 18:11
[2020-08-11] MEDS ORDERED: FAMOTIDINE 20MG/2ML IV (PEPCID) IVP ONE (18:30)
[2020-08-11] MEDS ORDERED: NS IV 1000 ML 1,000 ML IV SCH (18:30)
[2020-08-11] MEDS ORDERED: FAMOTIDINE 20MG/2ML IV (PEPCID) ONE (18:38)
[2020-08-11 18:48] LABS: BASOPHILS % (AUTO) 0 % (0-10); EOSINOPHILS % (AUTO) 0 % (0-10); HEMATOCRIT 41 % (40-54); HEMOGLOBIN 13.3 G/DL (13.3-17.7); LYMPHOCYTES % (AUTO) 9 % (12-44); MEAN CORPUSCULAR HEMOGLOBIN 27 PG (25-34); MEAN CORPUSCULAR HGB CONC 33 G/DL (32-36); MEAN CORPUSCULAR VOLUME 84 FL (80-99); MEAN PLATELET VOLUME 10.1 FL (7.4-10.4); MONOCYTES % (AUTO) 9 % (0-12); NEUTROPHILS % (AUTO) 82 % (42-75); PLATELET COUNT 254 10^3/uL (130-400); WHITE BLOOD COUNT 11.3 10^3/uL (4.3-11.0)
[2020-08-11 18:49] LABS: MONOCYTES # (AUTO) 1.1 X 10^3 (0.0-1.0); NEUTROPHILS # (AUTO) 9.1 X 10^3 (1.8-7.8)
[2020-08-11] MEDS ORDERED: LEVO5TAB12 PO (18:53)
[2020-08-11 18:59] LABS: ALANINE AMINOTRANSFERASE 13 U/L (0-55); ALKALINE PHOSPHATASE 63 U/L (40-136); BILIRUBIN,TOTAL 0.3 MG/DL (0.1-1.0); BUN/CREATININE RATIO 13; CALCIUM 8.4 MG/DL (8.5-10.1); CARBON DIOXIDE 26 MMOL/L (21-32); CHLORIDE 103 MMOL/L (98-107); CREATININE SERUM 1.03 MG/DL (0.60-1.30); GFR ESTIMATED > 60; GLUCOSE 128 MG/DL (70-105); SODIUM 138 MMOL/L (135-145); TOTAL PROTEIN 6.3 GM/DL (6.4-8.2)
[2020-08-11] MEDS ORDERED: CIPR500T5 PO (19:07)
[2020-08-11 19:49] VITALS: BP 128/77
== END 2020-08-11 19:49 | disposition home or self-care (01) ==
LOC: EDUNIT# 17:51 → ER FS 17:52
DX: R19.7 Diarrhea, unspecified (principal); I10 Essential (primary) hypertension; E78.00 Pure hypercholesterolemia, unspecified; K21.9 Gastro-esophageal reflux disease without esophagitis; F41.9 Anxiety disorder, unspecified; F32.9 Major depressive disorder, single episode, unspecified; E03.9 Hypothyroidism, unspecified; E11.9 Type 2 diabetes mellitus without complications; Z79.899 Other long term (current) drug therapy; Z79.890 Hormone replacement therapy; Z79.84 Long term (current) use of oral hypoglycemic drugs
CPT/HCPCS: 36415; 80053; 82947; 83605; 85025